=== PATIENT | male | born 1965 | race Hispanic/Latino ===

== ENCOUNTER 2018-10-24 11:38 | Emergency (ER) | payer OTHER ==
[~2018-10-24] VITALS: Ht 177.8 cm; Wt 99.8 kg
[~2018-10-24 11:38] MED LIST: FISH OIL300 MG; LOSARTAN POTAS100 MG PO; MIRAPEX0.25 MG PO; NKM
--- OUTSIDE RECORDS SUMMARY | 2018-10-24 11:40 | XMS REPORT ---
Author Author [facility] Address Unknown Phone Unavailable Care Team Providers Care Program Writer Name Role Phone Unavailable Unavailable Payers Payer Name Policy Type Policy Number Effective Date Expiration Date Problems This patient has no known problems. Allergies, Adverse Reactions, Alerts Allergy Name Allergy Type Status Severity Reaction(s) Onset Date Inactive Date Treating Clinician Comments No Known Allergies DA Active U 2018-04-01 00:00:00 Medications This patient has no known medications.
[2018-10-24] MEDS ORDERED: CEFTRIAXONE SOD 1 GM VIAL IM ONE (12:00)
--- NOTE | 2018-10-24 12:12 | NUR ---
urine into cx lopez tube and labelled and in fridge
== END 2018-10-24 12:15 | disposition home or self-care (01) ==
LOC: FSED 11:38
DX: M54.5 Low back pain (principal); N30.90 Cystitis, unspecified without hematuria; E78.5 Hyperlipidemia, unspecified; G25.81 Restless legs syndrome
CPT/HCPCS: 81003; 87086; 99283; J0696

== ENCOUNTER 2021-01-09 16:25 | Emergency (ER) | payer BC, OTHER ==
[~2021-01-09] VITALS: Ht 177.8 cm; Wt 103.0 kg
[2021-01-09 17:44] LABS: BASOPHILS % 0.5 % (0.0-1.0); EOSINOPHILS # (AUTO) 0.1 (0.0-0.4); EOSINOPHILS % 0.8 % (0.0-6.0); HEMATOCRIT 40.5 % (38.2-49.6); HEMOGLOBIN 14.1 g/dL (14.0-18.0); LYMPHOCYTES # (AUTO) 2.3 (1.0-3.2); LYMPHOCYTES % 31.2 % (18.0-39.1); MEAN CORPUSCULAR HEMOGLOBIN 32.3 pg (28-32); MEAN CORPUSCULAR HGB CONC 34.8 g/dL (31-35); MEAN CORPUSCULAR VOLUME 92.9 fL (81-99); MONOCYTES # (AUTO) 0.6 (0.2-0.8); NEUTROPHILS # (AUTO) 4.4 (2.1-6.9); NEUTROPHILS % 58.8 % (38.7-80.0); PLATELET COUNT 254 x10e3/uL (140-360); RED BLOOD COUNT 4.36 x10e6/uL (4.3-5.7); RED CELL DISTRIBUTION WIDTH 12.6 % (11.7-14.4)
[2021-01-09 17:47] LABS: CLARITY,URINE SL CLOUDY (CLEAR); COLOR,URINE YELLOW (YELLOW); KETONES,URINE NEGATIVE (NEGATIVE); LEUKOCYTE ESTERASE ,URINE NEGATIVE (NEGATIVE); NITRITE,URINE NEGATIVE (NEGATIVE); PROTEIN,URINE DIPSTICK NEGATIVE (NEGATIVE); URINE UROBILINOGEN 0.2 mg/dL (0.2 - 1)
[2021-01-09 18:02] LABS: ALANINE AMINOTRANSFERASE 56 IU/L (0-55); ALBUMIN 4.2 g/dL (3.5-5.0); ALBUMIN/GLOBULIN RATIO 1.1 (0.8-2.0); ALKALINE PHOSPHATASE 84 IU/L (40-150); ANION GAP 16.2 mmol/L (8-16); BLOOD UREA NITROGEN 19 mg/dL (7-26); BUN/CREATININE RATIO 19 (6-25); CALCIUM 9.9 mg/dL (8.4-10.2); CARBON DIOXIDE 21 mmol/L (22-29); CHLORIDE 107 mmol/L (98-107); CREATINE KINASE 157 IU/L (30-200); CREATININE, SERUM 0.98 mg/dL (0.72-1.25); EST GLOMERULAR FILTRATION RATE > 60 ML/MIN (60-); GLUCOSE 122 mg/dL (74-118); POTASSIUM 4.2 mmol/L (3.5-5.1); SODIUM 140 mmol/L (136-145)
[2021-01-09 18:06] LABS: BACTERIA,URINE FEW /HPF; RBC,URINE 0-5 /HPF (0-5)
[2021-01-09 18:54] VITALS: BP 141/90
== END 2021-01-09 18:56 | disposition home or self-care (01) ==
LOC: ER 18:30
DX: K62.5 Hemorrhage of anus and rectum (principal); R53.83 Other fatigue; I10 Essential (primary) hypertension; E78.5 Hyperlipidemia, unspecified; K21.9 Gastro-esophageal reflux disease without esophagitis; G25.81 Restless legs syndrome; F17.210 Nicotine dependence, cigarettes, uncomplicated
CPT/HCPCS: 36415; 80053; 81001; 82550; 82553; 84484; 85025; 99283

== ENCOUNTER → 2021-02-05 | Day surgery (SDC) | payer BC ==
[~2021-02-05] MED LIST changes: +FENTANYL CITRATE/PF 100MCG/2 ML INJ ONE; +HYOSCYAMINE SULFATE 0.5 MG/ML INJ ONE; +MIDAZOLAM HCL 2 MG/2 ML VIAL ONE; +NEXIUM40 MG PO; +PROPOFOL IV EMULSION 10 MG/ML 20 ML VIAL ONE
== END | disposition home or self-care (01) ==
LOC: OR 10:39
PROVIDERS: ATTEND Internal Medicine Gastroenterology
DX: K62.5 Hemorrhage of anus and rectum (principal); K62.1 Rectal polyp; K57.30 Diverticulosis of large intestine without perforation or abscess without bleeding; K64.8 Other hemorrhoids; K64.4 Residual hemorrhoidal skin tags; I10 Essential (primary) hypertension; E78.00 Pure hypercholesterolemia, unspecified; F17.210 Nicotine dependence, cigarettes, uncomplicated; Z01.810 Encounter for preprocedural cardiovascular examination; Z68.32 Body mass index [BMI] 32.0-32.9, adult
CPT/HCPCS: 45380; 45384; 93005; J1980; J2250; J2704; J3010

== ENCOUNTER 2023-01-31 18:29 | Emergency (ER) | payer OTHER ==
[~2023-01-31] VITALS: Ht 177.8 cm; Wt 103.0 kg
[~2023-01-31 18:29] MED LIST changes: +ACETAMIN-CODE12.5 ML PO; -FENTANYL CITRATE/PF 100MCG/2 ML INJ ONE; -HYOSCYAMINE SULFATE 0.5 MG/ML INJ ONE; -MIDAZOLAM HCL 2 MG/2 ML VIAL ONE; -PROPOFOL IV EMULSION 10 MG/ML 20 ML VIAL ONE
[2023-01-31] MEDS ORDERED: KETOROLAC TROMETHAMINE 30 MG/ML VIAL IM ONE (19:30)
[2023-01-31] MEDS ORDERED: ACETAMINOPHEN 325 MG TAB PO ONE (19:30)
[2023-01-31] MEDS ORDERED: ACETAMINOPHEN 325 MG TAB ONE (19:46)
[2023-01-31] MEDS ORDERED: KETOROLAC TROMETHAMINE 30 MG/ML VIAL ONE (19:47)
[2023-01-31] MEDS ORDERED: TYLENOL325 MG PO (19:48)
[2023-01-31] MEDS ORDERED: MELOXICAM7.5 MG PO (19:48)
[2023-01-31] MEDS ORDERED: PREDNISONE20 MG PO (19:48)
[2023-01-31 20:00] VITALS: BP 143/81; PULSE 102; RESP 18; TEMP 99.4; O2SAT 95
== END 2023-01-31 22:00 | disposition home or self-care (01) ==
LOC: FSED 18:34
DX: M54.31 Sciatica, right side (principal); B33.8 Other specified viral diseases; I10 Essential (primary) hypertension; F17.200 Nicotine dependence, unspecified, uncomplicated; K21.9 Gastro-esophageal reflux disease without esophagitis; E78.5 Hyperlipidemia, unspecified; Z59.6 Low income; G25.81 Restless legs syndrome
CPT/HCPCS: 73502; 83518; 99283; J1885

== ENCOUNTER 2024-06-26 11:37 | Emergency (ER) | payer OTHER ==
[~2024-06-26] VITALS: Ht 177.8 cm; Wt 103.4 kg
[~2024-06-26 11:37] MED LIST changes: +ATORVASTATIN CA20 MG PO; +CYCLOBENZAPRINE5 MG PO; +KETOROLAC TROME10 MG PO; +MELOXICAM7.5 MG PO; +PREDNISONE20 MG PO; +TYLENOL325 MG PO
[2024-06-26 11:39] VITALS: PULSE 84; RESP 15; TEMP 98.7; O2SAT 98
[2024-06-26] MEDS ORDERED: MELOXICAM15 MG PO (13:23)
== END 2024-06-26 13:42 | disposition home or self-care (01) ==
LOC: ER 11:43
DX: M25.511 Pain in right shoulder (principal); I10 Essential (primary) hypertension; E78.5 Hyperlipidemia, unspecified; K21.9 Gastro-esophageal reflux disease without esophagitis; G25.81 Restless legs syndrome
CPT/HCPCS: 99284